=== PATIENT | female | born 1960 | race Two or more races ===

== ENCOUNTER 2022-10-17 11:19 | Emergency (ER) | payer MEDICAID, OTHER ==
[~2022-10-17] VITALS: Ht 154.9 cm; Wt 91.2 kg
[2022-10-17 12:08] VITALS: BP 140/73
[2022-10-17] MEDS ORDERED: TETRACAINE HCL 0.5% OPTH(EYE) SOLN 4ML EACHEYE ONE (12:30)
== END 2022-10-17 13:12 | disposition home or self-care (01) ==
LOC: ER 11:19 → EDSEX 11:19 → ER 13:12
DX: H43.393 Other vitreous opacities, bilateral (principal); S05.02XA Injury of conjunctiva and corneal abrasion without foreign body, left eye, initial encounter; S05.01XA Injury of conjunctiva and corneal abrasion without foreign body, right eye, initial encounter; X58.XXXA Exposure to other specified factors, initial encounter; Y93.89 Activity, other specified; Y92.89 Other specified places as the place of occurrence of the external cause; Y99.8 Other external cause status
CPT/HCPCS: 70450

== ENCOUNTER 2023-12-17 13:17 | Emergency (ER) | payer OTHER, MEDICAID ==
[~2023-12-17] VITALS: Ht 154.9 cm; Wt 94.0 kg
[2023-12-17 14:17] LABS: Basophils # (auto) 0.1 10 ^3/uL (0-0.2); Eosinophils # (auto) 0.1 10 ^3/uL (0-0.8); Eosinophils % (auto) 1.3 % (0.0-7.0); Hematocrit 42.9 % (36.0-46.0); Hemoglobin 14.9 g/dL (12.2-16.2); Lymphocytes % (auto) 24.1 % (10.0-50.0); Mean Corpuscular Hemoglobin 30.9 pg (28.0-32.0); Mean Corpuscular Hgb Conc. 34.6 g/dL (32.0-36.0); Mean Corpuscular Volume 89.4 fL (80.0-100.0); Monocytes # (auto) 0.9 10 ^3/uL (0-1.3); Monocytes % (auto) 10.3 % (0.0-12.0); Neutrophils # (auto) 5.4 10 ^3/uL (1.6-8.6); Neutrophils % (auto) 63.3 % (37.0-80.0); Nucleated Red Blood Cells % 0.1 %; Platelet Count (auto) 266 10^3/uL (140-450); Red Cell Distribution Width 13.7 % (11.8-14.3); White Blood Cell 8.5 10^3/uL (4.4-10.8)
[2023-12-17 14:51] LABS: Alanine Aminotransferase 33 U/L (7-40); Albumin 4.4 g/dL (3.2-4.8); Alkaline Phosphatase 109 U/L (46-116); Anion Gap 7 (5-15); Aspartate Aminotransferase 23 U/L (13-40); BUN/Creatinine Ratio 12.7 (10.0-20.0); Blood Urea Nitrogen 10 mg/dL (9-23); Calcium 9.9 mg/dL (8.7-10.4); Carbon Dioxide 25 mmol/L (20-30); Chloride 108 mmol/L (98-107); Glucose 126 mg/dL (74-106); Potassium 3.7 mmol/L (3.5-5.1); Sodium 140 mmol/L (136-145)
[2023-12-17 14:52] LABS: Total Protein 7.3 g/dL (5.7-8.2)
[2023-12-17 15:00] LABS: Bilirubin, Total 0.6 mg/dL (0.2-1.0)
[2023-12-17 19:24] VITALS: BP 131/83; PULSE 76; RESP 18; TEMP 98.5; O2SAT 97
[2023-12-17 20:19] LABS: Urine Bacteria FEW /hpf (None Seen); Urine Blood Negative /uL (Negative); Urine Clarity Turbid (Clear); Urine Color Yellow (Yellow); Urine Hyaline Cast FEW /lpf (0 - 2); Urine Mucus FEW (None Seen); Urine Protein, UAD TRACE (Negative); Urine Specific Gravity 1.027 (1.001-1.035); Urine Urobilinogen Normal (Negative); Urine WBC 40 /hpf (0 - 5); Urine pH 5.5 (5.0-9.0)
== END 2023-12-17 19:55 | disposition home or self-care (01) ==
LOC: ER 13:17
DX: R00.2 Palpitations (principal); Z98.890 Other specified postprocedural states; Z79.899 Other long term (current) drug therapy
CPT/HCPCS: 36415; 71045; 80053; 81001; 83605; 83735; 83880; 84443; 84484; 85025; 85379; 93005

== ENCOUNTER 2024-10-07 09:39 | Outpatient (CLI) | payer MEDICAID ==
[2024-10-07 10:07] LABS: Urine Bacteria None Seen /hpf (None Seen)
[2024-10-07 10:17] LABS: Basophils # (auto) 0 10 ^3/uL (0-0.2); Basophils % (auto) 0.7 % (0.0-2.0); Eosinophils # (auto) 0.1 10 ^3/uL (0-0.8); Eosinophils % (auto) 1.7 % (0.0-7.0); Hematocrit 41.8 % (36.0-46.0); Hemoglobin 14.1 g/dL (12.2-16.2); Lymphocytes # (auto) 2.1 10 ^3/uL (0.4-5.4); Lymphocytes % (auto) 34.8 % (10.0-50.0); Mean Corpuscular Hemoglobin 30.2 pg (28.0-32.0); Mean Corpuscular Hgb Conc. 33.7 g/dL (32.0-36.0); Mean Corpuscular Volume 89.4 fL (80.0-100.0); Monocytes # (auto) 0.6 10 ^3/uL (0-1.3); Monocytes % (auto) 10.4 % (0.0-12.0); Neutrophils # (auto) 3.2 10 ^3/uL (1.6-8.6); Neutrophils % (auto) 52.4 % (37.0-80.0); Nucleated Red Blood Cells % 0.1 %; Platelet Count (auto) 217 10^3/uL (140-450); Red Blood Cells 4.68 10^6/uL (4.0-5.20); Red Cell Distribution Width 13.5 % (11.8-14.3); White Blood Cell 6.1 10^3/uL (4.4-10.8)
[2024-10-07 11:01] LABS: Urine Blood Negative /uL (Negative); Urine Clarity Clear (Clear); Urine Color Light-Yellow (Yellow); Urine Protein, UAD Negative (Negative); Urine Specific Gravity 1.015 (1.001-1.035); Urine Squamous Epithelial Cell FEW /hpf (<5); Urine Urobilinogen Normal (Negative); Urine WBC 31 /HPF (0-5); Urine pH 5.5 (5.0-9.0)
[2024-10-07 11:13] LABS: Alanine Aminotransferase 15 U/L (7-40); Alkaline Phosphatase 109 U/L (46-116); Anion Gap 9 (5-15); BUN/Creatinine Ratio 11.4 (10.0-20.0); Blood Urea Nitrogen 9 mg/dL (9-23); Carbon Dioxide 27 mmol/L (20-31); Chloride 108 mmol/L (98-107); Glucose 91 mg/dL (74-106); LDL Cholesterol 65 mg/dL (< 100); Potassium 4.3 mmol/L (3.5-5.1); Sodium 144 mmol/L (136-145); Total Protein 7.1 g/dL (5.7-8.2); Triglycerides 88 mg/dL (< 150)
[2024-10-07 11:14] LABS: Albumin 4.4 g/dL (3.2-4.8); Aspartate Aminotransferase 15 U/L (<34); Bilirubin, Total 0.4 mg/dL (0.2-1.0); Cholesterol 122 mg/dL (< 200); HDL Cholesterol 42 mg/dL (40-59)
[2024-10-08 08:07] LABS: Immunoglobulin A 355 mg/dL (87-352)
== END 2024-10-07 17:00 | disposition home or self-care (01) ==
LOC: LAB 09:39
PROVIDERS: ATTEND Nurse Practitioner Family
DX: Z12.11 Encounter for screening for malignant neoplasm of colon (principal); I10 Essential (primary) hypertension; E03.9 Hypothyroidism, unspecified; E78.5 Hyperlipidemia, unspecified; E55.9 Vitamin D deficiency, unspecified; R19.12 Hyperactive bowel sounds
CPT/HCPCS: 36415; 80053; 80061; 81001; 82274; 82306; 82784; 83036; 83516; 84439; 84443; 85025; 86255

== ENCOUNTER 2025-02-23 08:24 | Outpatient (CLI) | payer MEDICAID ==
[2025-02-23 09:26] LABS: Alanine Aminotransferase 28 U/L (7-40); Albumin 4.2 g/dL (3.2-4.8); Anion Gap 9 (5-15); BUN/Creatinine Ratio 12.2 (10.0-20.0); Blood Urea Nitrogen 10 mg/dL (9-23); Calcium 9.2 mg/dL (8.7-10.4); Carbon Dioxide 27 mmol/L (20-31); Chloride 107 mmol/L (98-107); Glucose 87 mg/dL (74-106); Potassium 4.4 mmol/L (3.5-5.1); Sodium 143 mmol/L (136-145); Total Protein 7.2 g/dL (5.7-8.2); Triglycerides 77 mg/dL (< 150)
[2025-02-23 09:27] LABS: Alkaline Phosphatase 118 U/L (46-116); Bilirubin, Total 0.5 mg/dL (0.2-1.0); Cholesterol 117 mg/dL (< 200); HDL Cholesterol 45 mg/dL (40-59)
[2025-02-23 09:48] LABS: Hematocrit 42.0 % (36.0-46.0); Hemoglobin 13.9 g/dL (12.2-16.2); Mean Corpuscular Hemoglobin 29.7 pg (28.0-32.0); Mean Corpuscular Volume 89.7 fL (80.0-100.0); Nucleated Red Blood Cells % 0.2 %
== END 2025-02-23 17:00 | disposition home or self-care (01) ==
LOC: LAB 08:24
PROVIDERS: ATTEND Nurse Practitioner Family
DX: E78.5 Hyperlipidemia, unspecified (principal); E55.9 Vitamin D deficiency, unspecified; R73.03 Prediabetes
CPT/HCPCS: 36415; 80053; 80061; 82306; 83036; 84443; 85025

== ENCOUNTER 2025-03-21 09:30 | Outpatient (CLI) | payer MEDICAID ==
[2025-03-21 10:04] LABS: Hematocrit 41.6 % (36.0-46.0); Hemoglobin 14.0 g/dL (12.2-16.2); Mean Corpuscular Hemoglobin 30.0 pg (28.0-32.0); Mean Corpuscular Volume 89.0 fL (80.0-100.0); Nucleated Red Blood Cells % 0.1 %
[2025-03-21 11:02] LABS: Alanine Aminotransferase 23 U/L (7-40); Albumin 4.4 g/dL (3.2-4.8); Anion Gap 9 (5-15); BUN/Creatinine Ratio 11.2 (10.0-20.0); Blood Urea Nitrogen 10 mg/dL (9-23); Calcium 9.7 mg/dL (8.7-10.4); Carbon Dioxide 28 mmol/L (20-31); Chloride 105 mmol/L (98-107); Glucose 90 mg/dL (74-106); Potassium 4.3 mmol/L (3.5-5.1); Sodium 142 mmol/L (136-145); Total Protein 7.4 g/dL (5.7-8.2); Triglycerides 116 mg/dL (< 150)
[2025-03-21 11:03] LABS: Bilirubin, Direct 0.2 mg/dL (<0.3); Bilirubin, Total 0.6 mg/dL (0.2-1.0); Cholesterol 131 mg/dL (< 200); HDL Cholesterol 43 mg/dL (40-59)
[2025-03-21 11:11] LABS: Alkaline Phosphatase 124 U/L (46-116)
== END 2025-03-21 17:00 | disposition home or self-care (01) ==
LOC: LAB 09:30
PROVIDERS: ATTEND Specialist
DX: I11.0 Hypertensive heart disease with heart failure (principal); I50.9 Heart failure, unspecified; E11.9 Type 2 diabetes mellitus without complications; E03.9 Hypothyroidism, unspecified; E78.5 Hyperlipidemia, unspecified; D64.9 Anemia, unspecified; R68.89 Other general symptoms and signs
CPT/HCPCS: 36415; 80053; 80061; 82248; 83036; 84443; 85025